=== PATIENT | female | born 1950 ===

== ENCOUNTER 2024-10-17 06:00 | Day surgery (SDC) | payer OTHER ==
[2024-10-10 08:33] VITALS: BP 148/82
[2024-10-10 08:45] LABS: BASO % 0.4 % (0.1-1.2); EOS # 0.14 (0.04-0.54); EOS % 3.0 % (0.7-7.0); LYMPH # 1.69 (1.18-3.74); LYMPH % 36.7 % (19.3-53.1); MEAN PLATELET VOLUME 9.20 fl (9.4-12.4); MONO # 0.52 (0.24-0.82); MONO % 11.3 % (4.7-12.5); NEUT # 2.22 (1.56-6.13); NEUT % 48.4 % (34.0-71.1); RED CELL DISTRIBUTION WIDTH 13.5 % (11.6-14.4)
[2024-10-10 09:04] LABS: URINE APPEARANCE Clear; URINE BILIRRUBIN Negative (NEGATIVE); URINE BLOOD Negative; URINE COLOR Yellow; URINE GLUCOSE Negative (NEGATIVE); URINE KETONE Negative (NEGATIVE); URINE LEUKOCYTE Moderate; URINE NITRATE Negative; URINE PROTEIN Negative (NEGATIVE); URINE UROBILINOGEN 0.2 E.U./dl
[2024-10-10 09:08] LABS: URINE BACTERIA 94.7 uL (0.0-1933); URINE EPITHELIAL CELLS 3.2 uL (0.0-38.8); URINE WBC 24.1 uL (0.0-23.2)
[2024-10-10 09:12] LABS: URINE CAST 0.00 uL (0.0-1.40); URINE RBC 1.4 uL (0.0-20.8)
[2024-10-10 09:30] LABS: INR 2.45
[2024-10-10 09:52] LABS: ALT/SGPT 29.0 U/L (12-78); AST/SGOT 27.0 U/L (15-37); BILIRUBIN TOTAL 0.64 mg/dL (0.3-1.2); BUN CREA RATIO 17.0 (7.0-25.0); CREATININE SERUM 0.76 mg/dL (0.55-1.02); GFR 75.02; GLOBULINA 3.0 G/DL (2.4-3.5); GLUCOSE FASTING 92.0 mg/dL (65-100); OSMOLALITY SERUM 288.0 MOSM/KG (275-295)
[~2024-10-17] VITALS: Ht 157.5 cm; Wt 61.7 kg
[~2024-10-17 06:00] MED LIST: ATORVASTATIN CA10 MG; AVAPRO150 MG PO; LEVOTHYROXINE25 MCG PO; LIPITOR40 MG PO
== END 2024-10-17 12:50 | disposition home or self-care (01) ==
LOC: CIR.AMB 06:00
PROVIDERS: ATTEND Orthopaedic Surgery Hand Surgery
DX: G56.01 Carpal tunnel syndrome, right upper limb (principal)

== ENCOUNTER 2024-10-17 06:12 | Outpatient (CLI) | payer OTHER ==
[2024-10-17 07:19] LABS: INR 1.05
== END 2024-10-17 06:14 | disposition home or self-care (01) ==
LOC: LAB 06:12
PROVIDERS: ATTEND Internal Medicine
DX: D68.9 Coagulation defect, unspecified (principal)